=== PATIENT | female | born 1995 | race Caucasian/White ===

== ENCOUNTER 2020-10-11 11:01 | Day surgery (SDC) | payer BC ==
[~2020-10-11] VITALS: Ht 157.5 cm; Wt 91.2 kg
[2020-10-11] MEDS ORDERED: CHLORHEXIDINE 15 ML UDC PO ONE (11:30)
[2020-10-11] MEDS ORDERED: CHLORHEXIDINE 15 ML UDC ONE (11:30)
[2020-10-11] MEDS ORDERED: INDOCYANINE GREEN 25 MG VIAL IV ONE (11:30)
[2020-10-11] MEDS ORDERED: LACTATED RINGERS 1,000 ML IV SCH (11:30)
[2020-10-11 11:36] VITALS: BP 121/84
[2020-10-11 11:46] LABS: HCG UR SG 1.003 (1.003-1.030)
[2020-10-11] MEDS ORDERED: METF500T17 PO (11:48)
[2020-10-11] MEDS ORDERED: BUPR-86 PO (11:48)
[2020-10-11] MEDS ORDERED: bcp PO (11:48)
[2020-10-11] MEDS ORDERED: INDOCYANINE GREEN 25 MG VIAL ONE (11:51)
[2020-10-11] MEDS ORDERED: PLEASE ENTER HEIGHT AND WEIGHT MC SCH (12:00)
[2020-10-11] MEDS ORDERED: MIDAZOLAM 1 MG/ML, 2ML ONE (12:31)
[2020-10-11] MEDS ORDERED: FENTANYL PF 250 MCG/5ML ONE (12:31)
[2020-10-11] MEDS ORDERED: CEFOTETAN 2 GM ONE ×2 (12:31→12:32)
[2020-10-11] MEDS ORDERED: GLYCOPYRROLATE 0.2MG/1ML, 5ML ONE (12:33)
[2020-10-11] MEDS ORDERED: PROPOFOL 10 MG/ML, 20ML ONE (12:33)
[2020-10-11] MEDS ORDERED: NEOSTIGMINE 1 MG/ML, 10ML ONE (12:33)
[2020-10-11] MEDS ORDERED: ROCURONIUM 10MG/ML,5ML ONE (12:33)
[2020-10-11] MEDS ORDERED: ONDANSETRON 2MG/ML, 2ML ONE (12:33)
[2020-10-11] MEDS ORDERED: DEXAMETHASONE 4 MG/ML, 1ML ONE (12:33)
[2020-10-11] MEDS ORDERED: BUPIVACAINE/PF 0.5% ONE (13:44)
[2020-10-11] MEDS ORDERED: EPINEPHRINE 1 MG/ML, 1ML ONE (13:44)
[2020-10-11] MEDS ORDERED: MEPERIDINE/PF 25MG/0.5ML IVPush PRN (14:00)
[2020-10-11] MEDS ORDERED: PROMETHAZINE 25 MG/ML, 1ML IVPush PRN (14:00)
[2020-10-11] MEDS ORDERED: morphine SULFATE 10 MG/ML, 1ML IVPush PRN (14:00)
[2020-10-11] MEDS ORDERED: hydrALAzine 20 MG/ML, 1ML IV PRN (14:00)
[2020-10-11] MEDS ORDERED: HYDROmorphone 1 MG/ML, 1ML INJ IVPush PRN (14:00)
[2020-10-11] MEDS ORDERED: LABETALOL 5MG/ML, 20ML IV PRN (14:00)
[2020-10-11] MEDS ORDERED: HALOPERIDOL 5 MG/ML IV PRN (14:00)
[2020-10-11] MEDS ORDERED: ACETAMINOPHEN 325 MG TABLET PO PRN (14:00)
[2020-10-11] MEDS ORDERED: OXYcodone 5 MG/5 ML ORAL.SOL UDC PO PRN (14:00)
[2020-10-11] MEDS ORDERED: FENTANYL PF 100 MCG/2ML ONE ×4 (14:44→15:36)
[2020-10-11] MEDS ORDERED: OXYcodone 5 MG/5 ML ORAL.SOL UDC ONE (15:36)
[2020-10-11] MEDS: FENTANYL PF 100 MCG/2ML IV PRN ×2 (15:40→15:45)
[2020-10-11] MEDS ORDERED: HYDR-2214 PO (15:42)
[2020-10-11] MEDS ORDERED: ONDA4TAB7 PO (15:42)
[2020-10-11] MEDS ORDERED: SCOPOLAMINE 1MG PATCH TD ONE (18:00)
[2020-10-11] MEDS ORDERED: PROMETHAZINE 25 MG SUPP PR PRN (18:00)
[2020-10-11] MEDS ORDERED: HALOPERIDOL 5 MG/ML IV ONE (18:00)
== END 2020-10-11 19:00 | disposition home or self-care (01) ==
LOC: OUT 11:01
PROVIDERS: ATTEND Surgery
DX: K80.10 Calculus of gallbladder with chronic cholecystitis without obstruction (principal); E28.2 Polycystic ovarian syndrome; E66.9 Obesity, unspecified; Z68.36 Body mass index [BMI] 36.0-36.9, adult; Z79.84 Long term (current) use of oral hypoglycemic drugs; Z79.899 Other long term (current) drug therapy; Z87.891 Personal history of nicotine dependence
CPT/HCPCS: 47562; 81025; 88304; J0171; J1100; J1630; J2250; J2405; J2704; J2710; J3010; J7120